=== PATIENT | male | born 1940 | race Caucasian/White ===

== ENCOUNTER 2024-02-15 20:35 | Emergency (ER) | payer OTHER, SELFPAY ==
--- NOTE | 2024-02-15 21:07 | ED.GENMED ---
History of Present Illness
General
Chief Complaint: Musculo-Skeletal Complaint
Source: patient
Exam Limitations: none
Time Seen by Provider: 02/15/24 20:57
Nursing documentation reviewed up to this point in time: agreed with
History of Present Illness
History of Present Illness:
84-year-old male presenting to the emergency department after trip and fall up the stairs landing directly on his right lateral shoulder. Discomfort to the area since his head did not lose consciousness. Adamantly denies any head trauma
Review of Systems
Review of Systems
Allergies reviewed?: Yes
All Other Systems: ROS reviewed and negative except as documented in HPI and ROS
Phy Exam
Physical Exam
Physical Exam:
GENERAL: Alert , in no apparent distress
EYE: pupils equal and reactive
NECK: Supple, no significant adenopathy.
ENT: o/p clr, mmm.
CARDIAC: Regular rate and rhythm .
LUNGS: Clear breath sounds bilaterally, no acute respiratory distress, no wheezes/rales/rhonchi
ABDOMEN: Soft, without focal tenderness, no r/g, no cvat
NEUROLOGICAL: Alert and oriented, no focal neuro deficits
SKIN: Warm and dry, skin intact.
MUSCULOSKELETAL: Mild swelling tenderness palpation to the lateral distal clavicle on the right side. No tenderness to the proximal humerus elbow or forearm., well perfused.
PSYCH: Normal and appropriate interaction.
Course
Orders/Labs/Results
Orders:
Orders
02/15/24 20:43
CR Shoulder, Trauma - Right Urgent
Reason For Exam: injury
02/15/24 21:06
Sling Right-Treatment ONCE
Vital Signs
Initial and Last Documented VS:
Initial Vital Signs
Temp Pulse Resp BP Pulse Ox
98.1 F 76 18 140/64 94
02/15/24 20:40 02/15/24 20:40 02/15/24 20:40 02/15/24 20:40 02/15/24 20:40
Last Documented Vital Signs
Temp Pulse Resp BP Pulse Ox
98.1 F 76 18 140/64 94
02/15/24 20:40 02/15/24 20:40 02/15/24 20:40 02/15/24 20:40 02/15/24 20:40
MDM/Problems Addressed
MDM/Problems Addressed:
83-year-old male presenting to department today with concerns of right-sided shoulder discomfort after falling directly on his shoulder tripping up the stairs while walking earlier today. Tenderness mainly to the lateral right clavicle. X-ray
showing distal clavicle fracture. Patient placed in a sling and otherwise will follow-up with Ortho neurovascular intact no signs of additional trauma no head pain no head trauma no neck pain. Patient stable for outpatient management. Return
precautions given.
*Critical Care Note
Total Time (30-74mins, 75-104mins- exclusive of procedures): Not Applicable
ED Attending Note
-
Portions of this chart may have been created with voice recognition software.� Occasional wrong word or��sound alike� substitutions may have occurred due to the inherent limitations of voice recognition software.
Discharge Plan
Departure
Patient Disposition: Home (Routine Discharge)
Date of Disposition: 02/15/24
Time of Disposition: 21:10
Patient with high blood pressure during this ER visit?: No
Condition: Good
Covid-19: Not Applicable
Discharge Problem:
Clavicle fracture
Instructions: Clavicle fracture
Referrals:
James Bray MD [Active] - Follow up in 5-7 days
Activity Restrictions/Additional Instructions:
You came to the emergency department today after a fall. You were found have a distal clavicle fracture. Please wear the sling and follow-up closely with orthopedics for further recommendations. In the meantime please ice and use Tylenol. Return
to the emergency department for any worsening, new or concerning symptoms
Interventions
Interventions:
*Risk Screen - Suicide Last Done: 02/15/24 20:40
*General Assessment Last Done: 02/15/24 20:40
*Neglect/Abuse Screening Last Done: 02/15/24 20:40
ED-Musculoskeletal Assessment Last Done: 02/15/24 20:55
Discharge Date and Time
Print Language: OCCITAN
== END 2024-02-15 21:48 | disposition home or self-care (01) ==
LOC: EMR 20:35
PROVIDERS: EMERGENCY PHYSICIAN Emergency Medicine
DX: S42.031A Displaced fracture of lateral end of right clavicle, initial encounter for closed fracture (principal); W10.9XXA Fall (on) (from) unspecified stairs and steps, initial encounter
CPT/HCPCS: 99283; 73030

== ENCOUNTER → 2025-01-15 10:57 | Outpatient (REF) | payer OTHER, SELFPAY | LOC: RCS 10:57 | PROVIDERS: ATTENDING PHYSICIAN Internal Medicine Interventional Cardiology; FAMILY PHYSICIAN Nurse Practitioner Family | DX: Z95.2 Presence of prosthetic heart valve (principal); Z86.79 Personal history of other diseases of the circulatory system; Z76.89 Persons encountering health services in other specified circumstances; Z01.89 Encounter for other specified special examinations; Z95.1 Presence of aortocoronary bypass graft; I25.10 Atherosclerotic heart disease of native coronary artery without angina pectoris; E78.2 Mixed hyperlipidemia; I10 Essential (primary) hypertension | CPT/HCPCS: 93005; 93306 ==

== ENCOUNTER 2025-06-05 10:32 | Emergency (ER) | payer OTHER, SELFPAY ==
[2025-06-05 10:33] VITALS: BMI 28.1
[2025-06-05 10:40] VITALS: BP 193/65
[2025-06-05 11:01] VITALS: BP 173/64
--- NOTE | 2025-06-05 11:13 | ED.GENMED ---
History of Present Illness
General
Chief Complaint: Heart Rate Problem
Time Seen by Provider: 06/05/25 11:02
History of Present Illness
History of Present Illness:
85-year-old male with history of hypertension, hyperlipidemia, CAD status post CABG x 4, AAS status post TAVR presents the emergency department for evaluation of a persistent cough and general fatigue for the past 4 to 5 weeks. Denies any fevers or
night sweats. Cough is generally dry. Also reports nasal congestion and lightheadedness. Saw his primary care physician today where he was noted to have a low pulse rate and sent to the ED for evaluation. Denies chest pain or significant
shortness of breath. Does report gradually worsening exertional fatigue. No leg swelling or calf cramping.
Review of Systems
Review of Systems
Allergies reviewed?: Yes
All Other Systems: ROS reviewed and negative except as documented in HPI and ROS
Phy Exam
Physical Exam
Physical Exam:
GEN: Well appearing, NAD, WDWN
HEENT: Oral mucosa moist, no scleral icterus
Cardiac: Irregular with frequent extrasystoles in a bigeminy pattern, no murmur
Lung: No respiratory distress, no tachypnea, lungs clear to auscultation bilaterally
MSK: No gross deformity or injuries, no lower extremity edema
Skin: Good color, no pallor or jaundice, no rashes
Neuro: AO x3, moves all extremities freely
Psych: Calm, cooperative
Course
Orders/Labs/Results
Orders:
Orders
06/05/25 10:40
Electrocardiogram (*1) Urgent
Reason for Study: Chest Pain
EKG- Treatment ONCE
06/05/25 11:12
CR Chest - 2 Views Urgent
Comment:
Reason For Exam: cough, SOB
06/05/25 11:16
Complete Blood Count/With Diff Urgent
Comprehensive Metabolic Panel Urgent
Lyme Progressive Urgent
NT-proBNP Urgent
TSH Reflex To Free T4 Urgent
Troponin I Urgent
Abnormal Lab Results
06/05/25
11:16
RBC 3.58 L 10^6/uL
(4.70-6.10)
Hgb 9.9 L g/dL
(13.0-18.0)
Hct 30.9 L %
(39.0-52.0)
MCHC 32.0 L g/dL
(33.0-37.0)
RDW 16.6 H %
(11.5-14.5)
Monocytes % 10.9 H %
(1.7-9.3)
BUN 21 H mg/dl
(9-20)
Glucose 109 H mg/dl
(70-99)
06/05/25 11:16
06/05/25 11:16
Vital Signs
Initial and Last Documented VS:
Initial Vital Signs
Temp Pulse Resp Pulse Ox
97.8 F 37 20 99
06/05/25 10:34 06/05/25 10:34 06/05/25 10:34 06/05/25 10:34
Last Documented Vital Signs
Temp Pulse Resp BP Pulse Ox
97.8 F 65 15 154/88 99
06/05/25 10:34 06/05/25 12:15 06/05/25 12:15 06/05/25 12:00 06/05/25 12:30
MDM/Problems Addressed
MDM/Problems Addressed:
On further review the patient was noted to have ventricular bigeminy on EKG as of January, echocardiogram at that time was also reassuring. Low clinical concern for any acute pathology resulting in his bigeminy as appears to be chronic. In regards to
his cough and nasal congestion he very likely has a persistent URI that we will treat with empiric antibiotics. Chest x-ray suggestive of interstitial disease thus will refer as an outpatient to pulmonology. Will treat with doxycycline, if Lyme
positive will add additional days to complete a 14-day course
Comment
Comment:
EKG independently interpreted by me shows a sinus rhythm with bigeminy PVCs, no ischemic changes
*Pulse Oximetry
SaO2: 99
Oxygen Mode of Delivery: Room air
Patient hypoxic: no
*Critical Care Note
Total Time (30-74mins, 75-104mins- exclusive of procedures): Not Applicable
ED Attending Note
-
Portions of this chart may have been created with voice recognition software.� Occasional wrong word or��sound alike� substitutions may have occurred due to the inherent limitations of voice recognition software.
Discharge Plan
Departure
Patient Disposition: Home (Routine Discharge)
Date of Disposition: 06/05/25
Time of Disposition: 12:24
Patient with high blood pressure during this ER visit?: No
Discharge Problem:
Cough, Ventricular bigeminy
Instructions: Cough in adults - ED (DC)
Prescriptions:
New
doxycycline hyclate 100 mg tablet
100 mg PO BID Qty: 10 0RF
No Action
atorvastatin 10 mg Tablet
10 mg PO DAILY
losartan 25 mg Tablet
25 mg PO DAILY
metoprolol succinate 25 mg Tablet Extended Release 24 Hr
25 mg PO DAILY
tamsulosin 0.4 mg Capsule
0.4 mg PO DAILY
aspirin 81 mg Tablet
81 mg PO DAILY
loratadine [Claritin] 10 mg Tablet
10 mg PO DAILY
Referrals:
Franco Hartman CRNP [Family Provider, General]
Abel Calvert MD [Active, Pulmonary Medicine]
Activity Restrictions/Additional Instructions:
Follow-up with pulmonology as we discussed
Your Lyme disease test will result in 3 to 4 days we will contact you with positive
Your abnormally low pulse rate is a product of 'bigeminy' where you have premature contractions of the heart every other beat. This was noted on January EKG as well and is likely not clinically significant
Interventions
Interventions:
*Risk Screen - Suicide Last Done: 06/05/25 10:34
*General Assessment Last Done: 06/05/25 10:34
*Neglect/Abuse Screening Last Done: 06/05/25 10:34
*ED- Fall Risk Assessment Last Done: 06/05/25 11:02
*Nursing Disposition Last Done: 06/05/25 12:31
ED- Cardiac Assessment Last Done: 06/05/25 11:02
ED- Pulmonary Assessment Last Done: 06/05/25 11:02
Discharge Date and Time
Discharge Date/Time: 06/05/25 12:31
Print Language: DJIBOUTIAN
[2025-06-05 11:26] LABS: Hematocrit 30.9 % (39.0-52.0); Hemoglobin 9.9 g/dL (13.0-18.0); Mean Corp Hgb Conc. 32.0 g/dL (33.0-37.0); Mean Corpuscular Volume 86.3 fL (80.0-94.0); Nucleated Red Blood Cells % 0 % (-); Platelet Count 194 10^3/uL (130-400); Red Cell Dist. Width 16.6 % (11.5-14.5)
[2025-06-05 11:30] VITALS: BP 157/53
[2025-06-05 11:40] LABS: ALT (SGPT) 19 U/L (0-50); AST (SGOT) 32 U/L (17-59); Albumin 4.1 g/dl (3.5-5.0); Alkaline Phosphatase 84 U/L (38-126); Blood Urea Nitrogen 21 mg/dl (9-20); Calcium 9.6 mg/dl (8.4-10.2); Carbon Dioxide 27 mmol/L (22-30); Chloride 105 mmol/L (98-107); Estimated Creatinine Clearance 51 ml/min; Glucose 109 mg/dl (70-99); Potassium 4.4 mmol/L (3.5-5.1); Sodium 136 mmol/L (135-145); Total Protein 7.0 g/dl (6.3-8.2); eGFR > 60.00
[2025-06-05 11:44] VITALS: BP 154/59
[2025-06-05 11:52] LABS: Troponin I 0.015 ng/ml
[2025-06-05 12:00] VITALS: BP 154/88
[2025-06-06 10:33] LABS: Lyme Antibody Screen, EIA Negative (Negative)
== END 2025-06-05 12:31 | disposition home or self-care (01) ==
LOC: EMR 10:32
PROVIDERS: Physician Assistant; EMERGENCY PHYSICIAN Emergency Medicine; FAMILY PHYSICIAN Nurse Practitioner Family
DX: I49.3 Ventricular premature depolarization (principal); R00.8 Other abnormalities of heart beat; R05.9 Cough, unspecified; R53.83 Other fatigue; E78.5 Hyperlipidemia, unspecified; I10 Essential (primary) hypertension; I25.10 Atherosclerotic heart disease of native coronary artery without angina pectoris; Z95.1 Presence of aortocoronary bypass graft; Z95.2 Presence of prosthetic heart valve
CPT/HCPCS: 99285; 71046; 80053; 83880; 84443; 84484; 85025; 86618; 93005